=== PATIENT | female | born 1955 | race Caucasian/White ===

== ENCOUNTER 2022-04-23 12:52 | Outpatient (REF) | payer BC, SELFPAY | END 2022-04-23 12:53 | disposition home or self-care (01) | LOC: NCHCN 12:52 | PROVIDERS: Visit Provider Family Medicine | DX: R30.0 Dysuria (principal) | CPT/HCPCS: 87086 ==

== ENCOUNTER 2025-02-15 22:39 | Outpatient (REF) | payer MEDICARE, SELFPAY ==
[2025-02-15 17:51] LABS: COMMENT (LAB VIEW ONLY) 92.30 mg/dL
[2025-02-15 17:53] LABS: Microalb ug/mg Crea 180.3 ug/mg Cr
== END 2025-02-15 22:40 | disposition home or self-care (01) ==
LOC: NCHCN 22:39
PROVIDERS: Visit Provider Internal Medicine
DX: E11.9 Type 2 diabetes mellitus without complications (principal)
CPT/HCPCS: 82043; 82570

== ENCOUNTER 2025-07-17 11:43 | Outpatient (REF) | payer MEDICARE, SELFPAY ==
[2025-07-17 15:25] LABS: Anion Gap 8.9 mmol/L (3-11); BUN 15 mg/dL (9-23); CO2 27.1 mmol/L (20.0-31.0); Calcium 9.1 mg/dL (8.3-10.6); Chloride 103 mmol/L (98-107); Cholesterol 233 mg/dL (<200); Glucose 153 mg/dL (74-106); HDL Cholesterol 55 mg/dL (>40); Potassium 4.4 mmol/L (3.5-5.1); Sodium 139 mmol/L (136-145)
[2025-07-17 15:26] LABS: Hemoglobin A1C 6.9 % (<5.7)
== END 2025-07-17 11:44 | disposition home or self-care (01) ==
LOC: NCHCN 11:43
PROVIDERS: Visit Provider Internal Medicine
DX: E78.2 Mixed hyperlipidemia (principal); E11.9 Type 2 diabetes mellitus without complications
CPT/HCPCS: 80048; 80061; 83036